=== PATIENT | male | born 1935 | race Caucasian/White ===

== ENCOUNTER 2020-07-22 08:19 | Inpatient (IN) | payer MEDICARE ==
[~2020-07-22] VITALS: Ht 180.3 cm; Wt 91.6 kg
[2020-07-22 09:08] LABS: RED BLOOD COUNT 4.52 M/UL (4.20-5.50); WHITE BLOOD COUNT 15.7 K/UL (4.5-11.0)
[2020-07-22] MEDS ORDERED: SILVADENE CREAM20 GM TOP (11:53)
[2020-07-22] MEDS ORDERED: VENTOLIN HFA 66.7 GM INH (11:53)
[2020-07-22] MEDS ORDERED: COZAAR 50MG TAB50 MG PO (11:53)
[2020-07-22] MEDS ORDERED: FOLIC ACID 1 MG1 MG PO (11:53)
[2020-07-22] MEDS ORDERED: TYLENOL325 MG PO (11:54)
[2020-07-23 08:08] LABS: HEMOGLOBIN 13.5 gm/dl (14.0-17.5); RED BLOOD COUNT 4.59 M/UL (4.20-5.50); WHITE BLOOD COUNT 16.5 K/UL (4.5-11.0)
--- NOTE | 2020-07-23 18:08 | NUR ---
DR. SOLER DID NOT WANT TO DISCHARGE PT, PT REFUSED AND SIGNED OUT AMA
== END 2020-07-23 18:23 | disposition left against medical advice (07) | DRG 291 ==
LOC: ER1 08:19 → CDU 11:12 → M/S 19:08
PROVIDERS: Internal Medicine; Physician Assistant; ADMIT Family Medicine
PROC: B24BZZZ Ultrasonography of Heart with Aorta (ICD-10-PCS; principal; 2020-07-22)
DX: I13.0 Hypertensive heart and chronic kidney disease with heart failure and stage 1 through stage 4 chronic kidney disease, or unspecified chronic kidney disease (principal); I50.23 Acute on chronic systolic (congestive) heart failure; J18.9 Pneumonia, unspecified organism; N18.30 Chronic kidney disease, stage 3 unspecified; I42.9 Cardiomyopathy, unspecified; I48.91 Unspecified atrial fibrillation; Z86.16 Personal history of COVID-19; I44.7 Left bundle-branch block, unspecified; D69.6 Thrombocytopenia, unspecified; N40.0 Benign prostatic hyperplasia without lower urinary tract symptoms; I73.9 Peripheral vascular disease, unspecified; I49.3 Ventricular premature depolarization; H91.90 Unspecified hearing loss, unspecified ear; Z85.6 Personal history of leukemia; Z86.718 Personal history of other venous thrombosis and embolism; Z95.828 Presence of other vascular implants and grafts; Z98.890 Other specified postprocedural states
CPT/HCPCS: ECHO; 0240U; 36415; 71250; 80048; 80053; 82550; 82553; 83605; 83735; 83880; 84439; 84443; 84484; 85025; 85610; 87040; 93005; 93306; 96365; 96375; 99285; J1650; J1940; J2543

== ENCOUNTER 2020-10-15 12:26 | Inpatient (IN) | payer MEDICARE ==
[~2020-10-15] VITALS: Ht 180.3 cm; Wt 91.2 kg
[~2020-10-15 12:26] MED LIST: COZAAR 50MG TAB50 MG PO; FOLIC ACID 1 MG1 MG PO; SILVADENE CREAM20 GM TOP; TYLENOL325 MG PO; VENTOLIN HFA 66.7 GM INH
[2020-10-15 13:20] LABS: HEMOGLOBIN 14.2 gm/dl (14.0-17.5); RED BLOOD COUNT 4.68 M/UL (4.20-5.50)
[2020-10-15] MEDS ORDERED: GABAPENTIN300 MG PO (15:21)
[2020-10-15] MEDS ORDERED: LOPRESSOR 25 MG25 MG PO (15:22)
[2020-10-15] MEDS ORDERED: ALDACTONE 25MG25 MG PO (15:23)
--- NOTE | 2020-10-15 17:08 | NUR ---
PVR 100 CC
[2020-10-16 03:34] LABS: HEMOGLOBIN 14.2 gm/dl (14.0-17.5); RED BLOOD COUNT 4.73 M/UL (4.20-5.50); WHITE BLOOD COUNT 21.9 K/UL (4.5-11.0)
[2020-10-17 04:21] LABS: HEMOGLOBIN 14.4 gm/dl (14.0-17.5); RED BLOOD COUNT 4.7 M/UL (4.20-5.50); WHITE BLOOD COUNT 22.7 K/UL (4.5-11.0)
[2020-10-18 06:41] LABS: CREATININE, URINE 76.4 mg/dL (Not Estab.)
[2020-10-20 14:37] LABS: WHITE BLOOD COUNT 22.8 K/UL (4.5-11.0)
== END 2020-10-18 11:28 | disposition home or self-care (01) | DRG 291 ==
LOC: ER1 12:26 → MED SURG 4 14:52 → CDU 14:52 → MED SURG 4 15:39
PROVIDERS: Physician Assistant Medical; ADMIT Internal Medicine
DX: I13.0 Hypertensive heart and chronic kidney disease with heart failure and stage 1 through stage 4 chronic kidney disease, or unspecified chronic kidney disease (principal); I50.23 Acute on chronic systolic (congestive) heart failure; J96.01 Acute respiratory failure with hypoxia; C91.10 Chronic lymphocytic leukemia of B-cell type not having achieved remission; N17.9 Acute kidney failure, unspecified; E87.1 Hypo-osmolality and hyponatremia; I48.91 Unspecified atrial fibrillation; N40.0 Benign prostatic hyperplasia without lower urinary tract symptoms; I08.3 Combined rheumatic disorders of mitral, aortic and tricuspid valves; I44.7 Left bundle-branch block, unspecified; D69.6 Thrombocytopenia, unspecified; I27.20 Pulmonary hypertension, unspecified; N18.32 Chronic kidney disease, stage 3b; I73.9 Peripheral vascular disease, unspecified; H91.90 Unspecified hearing loss, unspecified ear; D63.1 Anemia in chronic kidney disease; Z79.01 Long term (current) use of anticoagulants; Z86.718 Personal history of other venous thrombosis and embolism; Z90.49 Acquired absence of other specified parts of digestive tract; Z86.16 Personal history of COVID-19
CPT/HCPCS: 36415; 36600; 71045; 80048; 80053; 82043; 82550; 82553; 82570; 82803; 83605; 83690; 83735; 83874; 83880; 84156; 84439; 84443; 84484; 85025; 85027; 87040; 93005; 96374; 99285; J0696; J1650; J1940; J7030; U0002

== ENCOUNTER 2020-10-21 19:52 | Emergency (ER) | payer MEDICARE ==
[~2020-10-21 19:52] MED LIST changes: +ALDACTONE 25MG25 MG PO; +GABAPENTIN300 MG PO; +LOPRESSOR 25 MG25 MG PO
[2020-10-21 21:51] LABS: RED BLOOD COUNT 4.9 M/UL (4.20-5.50); WHITE BLOOD COUNT 17.4 K/UL (4.5-11.0)
[2020-10-21] MEDS ORDERED: FLOMAX 0.4 MG0.4 MG PO (22:40)
== END 2020-10-21 23:10 | disposition home or self-care (01) ==
LOC: ER1 19:52
PROVIDERS: Family Medicine
DX: R33.9 Retention of urine, unspecified (principal); I10 Essential (primary) hypertension
CPT/HCPCS: 51702; 80053; 81001; 85025; 99283

== ENCOUNTER 2020-10-24 10:32 | Emergency (ER) | payer MEDICARE ==
[~2020-10-24 10:32] MED LIST changes: +FLOMAX 0.4 MG0.4 MG PO
== END 2020-10-24 13:05 | disposition home or self-care (01) ==
LOC: ER1 10:32
DX: R31.9 Hematuria, unspecified (principal); R33.9 Retention of urine, unspecified
CPT/HCPCS: 51702; 81001; 87086; 99283

== ENCOUNTER 2020-11-17 08:37 | Inpatient (IN) | payer MEDICARE ==
[~2020-11-17] VITALS: Ht 177.8 cm; Wt 84.5 kg
[2020-11-17 09:20] LABS: HEMOGLOBIN 14.4 gm/dl (14.0-17.5); RED BLOOD COUNT 4.69 M/UL (4.20-5.50)
[2020-11-17] MEDS ORDERED: GARLIC100 MG PO (11:54)
[2020-11-17] MEDS ORDERED: LOSARTAN POTAS100 MG PO (12:59)
[2020-11-17] MEDS ORDERED: LOPRESSOR 25 MG25 MG PO (13:00)
[2020-11-17] MEDS ORDERED: GABAPENTIN400 MG PO (15:09)
[2020-11-17] MEDS ORDERED: LASIX20 MG PO (15:22)
[2020-11-17] MEDS ORDERED: FISH OIL 1,2001 EAC1 PO (15:22)
[2020-11-18 02:48] LABS: RED BLOOD COUNT 4.84 M/UL (4.20-5.50); WHITE BLOOD COUNT 13.4 K/UL (4.5-11.0)
[2020-11-18 17:08] LABS: WHITE BLOOD COUNT 12.9 K/UL (4.5-11.0)
[2020-11-18] MEDS ORDERED: ASPIRIN EC81 MG PO (19:03)
[2020-11-19 02:53] LABS: HEMOGLOBIN 14.9 gm/dl (14.0-17.5); RED BLOOD COUNT 4.86 M/UL (4.20-5.50); WHITE BLOOD COUNT 16.8 K/UL (4.5-11.0)
== END 2020-11-19 04:05 | disposition short-term general hospital (02) | DRG 291 ==
LOC: ER1 08:37 → CDU 11:19 → PROG CARE 16:32
PROVIDERS: Family Medicine; Physician Assistant; ADMIT Internal Medicine
DX: I13.0 Hypertensive heart and chronic kidney disease with heart failure and stage 1 through stage 4 chronic kidney disease, or unspecified chronic kidney disease (principal); I50.43 Acute on chronic combined systolic (congestive) and diastolic (congestive) heart failure; N17.9 Acute kidney failure, unspecified; I27.20 Pulmonary hypertension, unspecified; N18.32 Chronic kidney disease, stage 3b; I35.0 Nonrheumatic aortic (valve) stenosis; I95.9 Hypotension, unspecified; I48.91 Unspecified atrial fibrillation; H91.90 Unspecified hearing loss, unspecified ear; Z20.822 Contact with and (suspected) exposure to COVID-19; I44.7 Left bundle-branch block, unspecified; I25.10 Atherosclerotic heart disease of native coronary artery without angina pectoris; I49.3 Ventricular premature depolarization; D69.6 Thrombocytopenia, unspecified; N40.0 Benign prostatic hyperplasia without lower urinary tract symptoms; Z86.711 Personal history of pulmonary embolism; Z86.718 Personal history of other venous thrombosis and embolism; Z95.5 Presence of coronary angioplasty implant and graft; Z85.6 Personal history of leukemia; Z79.82 Long term (current) use of aspirin; Z79.899 Other long term (current) drug therapy; Z90.49 Acquired absence of other specified parts of digestive tract; Z95.820 Peripheral vascular angioplasty status with implants and grafts; Z82.49 Family history of ischemic heart disease and other diseases of the circulatory system
CPT/HCPCS: 36415; 71045; 71046; 80048; 80053; 82550; 82553; 83735; 83874; 83880; 84484; 85025; 85027; 85049; 93005; 94640; 94664; 96374; 99285; J1940; J2405; U0002

== ENCOUNTER 2021-07-11 20:18 | Emergency (ER) | payer OTHER ==
[~2021-07-11 20:18] MED LIST changes: +ASPIRIN EC81 MG PO; +FISH OIL 1,2001 EAC1 PO; +GABAPENTIN400 MG PO; +GARLIC100 MG PO; +LASIX20 MG PO; +LOSARTAN POTAS100 MG PO
== END 2021-07-11 21:29 | disposition home or self-care (01) ==
LOC: ER1 20:18
DX: S60.222A Contusion of left hand, initial encounter (principal); I10 Essential (primary) hypertension; Z79.01 Long term (current) use of anticoagulants; W22.8XXA Striking against or struck by other objects, initial encounter; Y92.009 Unspecified place in unspecified non-institutional (private) residence as the place of occurrence of the external cause
CPT/HCPCS: 73130; 99283